=== PATIENT | female | born 1995 | race Caucasian/White ===

== ENCOUNTER → 2019-03-02 | Outpatient (CLI) | payer BC ==
[~2019-03-02] MED LIST: LOMOTIL 0.025 M1 TAB PO; ZOFRAN ODT4 MG SL; Zofran4 MG PO
== END | disposition home or self-care (01) ==
LOC: US 06:25
DX: E78.1 Pure hyperglyceridemia (principal); R94.5 Abnormal results of liver function studies

== ENCOUNTER → 2020-05-24 | Outpatient (CLI) | payer BC | END | disposition home or self-care (01) | LOC: US 12:36 | PROVIDERS: ATTEND Nurse Practitioner Women's Health | DX: Z34.91 Encounter for supervision of normal pregnancy, unspecified, first trimester (principal); Z33.1 Pregnant state, incidental; Z3A.10 10 weeks gestation of pregnancy ==

== ENCOUNTER → 2020-06-02 | Outpatient (CLI) | payer MEDICAID | END | disposition home or self-care (01) | LOC: US 11:30 | PROVIDERS: ATTEND Nurse Practitioner Women's Health | DX: Z34.01 Encounter for supervision of normal first pregnancy, first trimester (principal); Z3A.12 12 weeks gestation of pregnancy ==

== ENCOUNTER → 2020-06-08 | Outpatient (CLI) | payer MEDICAID | END | disposition home or self-care (01) | LOC: LAB 09:20 | PROVIDERS: ATTEND Nurse Practitioner Women's Health | DX: O16.2 Unspecified maternal hypertension, second trimester (principal); Z3A.13 13 weeks gestation of pregnancy ==

== ENCOUNTER → 2020-07-06 | Outpatient (CLI) | payer MEDICAID ==
[2020-07-06 08:06] LABS: ALBUMIN 3.3 gm/dl (3.1-4.5); ALKALINE PHOSPHATASE 61 U/L (45-117); BUN 6 mg/dl (7-24); CHLORIDE 108 mmol/L (98-107); CREATININE 0.47 mg/dL (0.55-1.02); POTASSIUM 3.9 mmol/L (3.5-5.1); SGOT/AST 46 IU/L (3-35); SGPT/ALT 35 U/L (12-78); SODIUM 140 mmol/L (136-145); TOTAL PROTEIN 7.3 gm/dL (6.4-8.2)
== END | disposition home or self-care (01) ==
LOC: LAB 12:00
PROVIDERS: ATTEND Nurse Practitioner Women's Health
DX: O26.613 Liver and biliary tract disorders in pregnancy, third trimester (principal); R74.8 Abnormal levels of other serum enzymes; Z3A.49 Greater than 42 weeks gestation of pregnancy